=== PATIENT | female | born 1940 | race Caucasian/White ===

== ENCOUNTER → 2017-11-20 | Outpatient (CLI) | payer MEDICARE, OTHER ==
[~2017-11-20] MED LIST: AMOX500T2 PO; ASPI81TA82 PO; BENI40TA30 PO; BIOTCAP PO; CARV3.12 PO; CYAN1TAB22 PO; D200CAP PO; ECASA81 PO; FENO145T2 PO; FENO160T2 PO; KOMB5TAB2 PO; LEVO.125 PO; LIVA2TAB PO; LIVA4TAB PO; LORTA5 PO; LOSA25TA PO; OMEP20TA39 PO; OMEP40CA2 PO; PLAV75TA PO; SAXA1TBM PO; SYNT112T PO; SYNT125T PO; TIMO0.5S29 EACH EYE; TORS5TAB2 PO; TRAV0.00 EACH EYE; VITA200017 PO
[2017-11-20 11:22] LABS: CHOLESTEROL 168 MG/DL (120-200); TRIGLYCERIDES 236 MG/DL (42-150)
[2017-11-20 11:48] LABS: CHOLESTEROL/ HDL RATIO 7.81 RATIO; FREE T3 2.23 PG/ML (2.18-3.98); FREE T4 1.59 NG/DL (0.76-1.46); HDL CHOLESTEROL 21.5 MG/DL (40.0-60.0); LDL CHOLESTEROL 99 MG/DL (0-99)
[2017-11-20 16:28] LABS: HEMOGLOBIN A1C 6.1 % (4.3-6.0)
== END ==
LOC: CLAB 09:59
PROVIDERS: ATTEND Internal Medicine Endocrinology, Diabetes & Metabolism
DX: I10 Essential (primary) hypertension (principal); E11.65 Type 2 diabetes mellitus with hyperglycemia; E03.9 Hypothyroidism, unspecified; D53.1 Other megaloblastic anemias, not elsewhere classified; I25.10 Atherosclerotic heart disease of native coronary artery without angina pectoris; E78.4 Other hyperlipidemia
CPT/HCPCS: 80061; 82607; 83036; 84439; 84443; 84481

== ENCOUNTER → 2017-11-20 | Outpatient (CLI) | payer MEDICARE, OTHER ==
[2017-11-20 10:55] LABS: BASOPHIL # 0.2 TH/MM3 (0-0.2); BASOPHIL % 2.7 % (0.0-2.0); EOSINOPHIL # 0.6 TH/MM3 (0-0.4); EOSINOPHIL % 7.8 % (0.0-4.0); HEMATOCRIT 41.7 % (35.0-46.0); HEMOGLOBIN 13.8 GM/DL (11.6-15.3); LYMPH % 18.9 % (9.0-44.0); LYMPHOCYTE # 1.5 TH/MM3 (1.0-4.8); MEAN CELL VOLUME 90.2 FL (80.0-100.0); MEAN CORPUSCULAR HEMOGLOBIN 29.9 PG (27.0-34.0); MEAN CORPUSCULAR HGB CONC 33.2 % (32.0-36.0); MEAN PLATELET VOLUME 9.4 FL (7.0-11.0); MONO % 7.2 % (0.0-8.0); MONOCYTE # 0.6 TH/MM3 (0-0.9); NEUT % 63.4 % (16.0-70.0); PLATELET COUNT 405 TH/MM3 (150-450); RED BLOOD COUNT 4.63 MIL/MM3 (4.00-5.30); RED CELL DISTRIBUTION WIDTH 14.5 % (11.6-17.2); WHITE BLOOD COUNT 7.8 TH/MM3 (4.0-11.0)
[2017-11-20 11:02] LABS: INTERNATIONAL NORMALIZED RATIO 1.1 RATIO
[2017-11-20 11:20] LABS: ALBUMIN 4.5 GM/DL (3.4-5.0); AST (GOT) 21 U/L (15-37); BICARBONATE 27.2 MEQ/L (21.0-32.0); BLOOD UREA NITROGEN 23 MG/DL (7-18); CHLORIDE 100 MEQ/L (98-107); CREATININE 0.87 MG/DL (0.50-1.00); GLOMERULAR FILTRATION RATE 63 ML/MIN (>89); GLUCOSE,FASTING 116 MG/DL (74-99); SODIUM (NA) 137 MEQ/L (136-145)
[2017-11-20 11:23] LABS: BACTERIA, URINE OCC /hpf; BILIRUBIN, URINE NEG (NEG); BLOOD, URINE NEG (NEG); GLUCOSE,URINE NEG (NEG); HYALINE CAST, URINE 3 /lpf (RARE); KETONE, URINE NEG (NEG); MUCUS URINE FEW /lpf (OCC); NITRITE,URINE NEG (NEG); URINE COLOR YELLOW (YELLW/STRAW); URINE LEUKOCYTE ESTERASE LARGE (NEG); WHITE BLOOD CELL CLUMPS RARE
[2017-11-20 11:24] LABS: ALKALINE PHOSPHATASE 58 U/L (45-117); ALT (GPT) 21 U/L (10-53); TOTAL BILIRUBIN ADULT 0.3 MG/DL (0.2-1.0); TOTAL PROTEIN 8.6 GM/DL (6.4-8.2)
--- NOTE | 2017-11-20 11:26 | RADRPT ---
EXAM DATE/TIME: 11/20/2017 10:45 [place] COMPARISON: No previous studies available for comparison. INDICATIONS : Evalaute for pneumonia, pneumothorax, or communicable disease. Pre-op for sigmoid colectomy. MEDICAL HISTORY : Hypertension. Diabetes mellitus type II. SURGICAL HISTORY : Coronary artery stent. ENCOUNTER: Initial ACUITY: 1 day PAIN SCORE: 0/10 LOCATION: Bilateral chest FINDINGS: The lungs are clear without infiltrate, nodule, or mass. There is no appreciable pleural effusion fo r technique. Heart and mediastinum are unremarkable. CONCLUSION: No acute cardiopulmonary disease. Cruzito Jaime MD on November 20, 2017 at 11:23 Board Certified Radiologist. This report was verified electronically.
== END ==
LOC: CPRE 09:46
PROVIDERS: ATTEND Colon & Rectal Surgery
DX: Z01.812 Encounter for preprocedural laboratory examination (principal); Z01.811 Encounter for preprocedural respiratory examination; K57.32 Diverticulitis of large intestine without perforation or abscess without bleeding; N32.1 Vesicointestinal fistula; R82.99 Other abnormal findings in urine; Z79.01 Long term (current) use of anticoagulants; I10 Essential (primary) hypertension; E11.65 Type 2 diabetes mellitus with hyperglycemia; E03.9 Hypothyroidism, unspecified; D53.1 Other megaloblastic anemias, not elsewhere classified; I25.10 Atherosclerotic heart disease of native coronary artery without angina pectoris; E78.4 Other hyperlipidemia
CPT/HCPCS: 36415; 71046; 80053; 81001; 85025; 85610; 85730; 87086

== ENCOUNTER 2017-11-27 11:38 | Inpatient (IN) | payer MEDICARE, OTHER ==
[~2017-11-27] VITALS: Ht 161.3 cm; Wt 58.8 kg
[2017-11-27] VITALS (7 sets, daily range): BP systolic 121–148; BP diastolic 60–66; PULSE 81–88; RESP 16–18; TEMP 97.5–97.6; O2SAT 98–99
[~2017-11-27 11:38] MED LIST changes: -ASPI81TA82 PO; -BENI40TA30 PO; -FENO160T2 PO; -LIVA2TAB PO; -LORTA5 PO; -OMEP20TA39 PO; -PLAV75TA PO; -SAXA1TBM PO; -SYNT125T PO; -TIMO0.5S29 EACH EYE; -VITA200017 PO
[2017-11-27] MEDS ORDERED: DEXAMETHASONE SOD PHOS 4 MG/ML VIAL IV ONE (12:00)
[2017-11-27] MEDS ORDERED: PHENYLEPH/NS 1000 MCG/10 ML SYR IV ONE (12:00)
[2017-11-27] MEDS ORDERED: ONDANSETRON HCL 4 MG/2 ML VIAL IV ONE (12:00)
[2017-11-27] MEDS ORDERED: LIDOCAINE HCL 1% PF 5 ML SYRINGE OTHER ONE (12:00)
[2017-11-27] MEDS ORDERED: GLYCOPYRROLATE 1 MG/5 ML SYRINGE IV PUSH ONE (12:00)
[2017-11-27] MEDS ORDERED: ROCURONIUM INJ 50 MG/5 ML SYRINGE IV PUSH ONE (12:00)
[2017-11-27] MEDS ORDERED: ESMOLOL HCL 100 MG/10 ML VIAL IV ONE (12:00)
[2017-11-27] MEDS ORDERED: NEOSTIGMINE 5 MG/5 ML SYRINGE IV PUSH ONE (12:00)
[2017-11-27] MEDS ORDERED: LACTATED RINGER'S 1000 ML INJ 2,000 ML IV ONE (12:00)
[2017-11-27] MEDS ORDERED: PROPOFOL 200 MG/20 ML AMP IV ONE (12:00)
[2017-11-27] MEDS ORDERED: LEVO.125 PO (12:37)
[2017-11-27] MEDS ORDERED: BUPIVACAINE HCL PF 0.5% 30 ML VIAL ONE (12:44)
[2017-11-27] MEDS ORDERED: ceFAZolin INJ 1,000 MG VIAL ONE (13:07)
[2017-11-27] MEDS ORDERED: ALVIMOPAN 12 MG CAPSULE ONE (13:07)
[2017-11-27] MEDS ORDERED: LACTATED RINGER'S 1000 ML INJ 1,000 ML ONE (13:08)
[2017-11-27] MEDS ORDERED: metroNIDAZOLE 500 MG INJ 100 ML IV ONE (13:08)
[2017-11-27] MEDS ORDERED: SODIUM CHLORIDE 0.9% INJ 100 ML ONE (13:08)
[2017-11-27] MEDS ORDERED: LACTATED RINGER'S 1000 ML IV PRN (13:30)
[2017-11-27] MEDS ORDERED: SODIUM CHLORID 0.9% 500 ML IV PRN (13:30)
[2017-11-27] MEDS ORDERED: METOPROLOL TARTRATE 25 MG TAB PO PRN (13:30)
[2017-11-27] MEDS ORDERED: ALVIMOPAN 12 MG CAPSULE - On Call PO SCH (13:30)
[2017-11-27] MEDS ORDERED: POVIDONE IODINE 5% (ANTISEPSIS KIT) 4 APPLICATIONS EACH NARE PRN (13:30)
[2017-11-27] MEDS ORDERED: CHLORHEXIDINE GLUCONATE 2 % 1 PACK (2 CLOTHS) TOPICAL PRN (13:30)
[2017-11-27] MEDS ORDERED: APREPITANT 40 MG CAP ONE (13:42)
[2017-11-27] MEDS ORDERED: METRONIDAZOLE 500 MG/100 ML ISONTONIC SOLN IV SCH (13:45)
[2017-11-27] MEDS ORDERED: ceFAZolin 1,000 MG/NS 100 ML IV SCH ×2 (13:45)
[2017-11-27] MEDS ORDERED: ACETAMINOPHEN 1000 MG/100 ML 100 ML IV ONE (13:45)
[2017-11-27] MEDS ORDERED: DEXT 5%-NACL 0.9% 1000 ML INJ 1,000 ML IV SCH (14:00)
--- NOTE | 2017-11-27 14:29 | PD.OP ---
Operative Report Date of Surgery: Nov 27, 2017 Preoperative Diagnosis: Diverticulitis with colovesical fistula Postoperative Diagnosis: Same Procedure: Cystoscopy bilateral ureteral catheter placement Anesthesia: STELLAA Surgeon: Loco Matthews Footwear Sales Representative(s): None Resident Surgeon: None Operation and Findings: 69-year-old female with a history of diverticulitis and a colovesical fistula. Request for made for placement of bilateral ureteral catheters by Dr. Garcia. Risk and benefits were discussed preoperative and she is willing to proceed. Patient is brought to the operating room and identified by myself as Savita Granger. She is placed in dorsal lithotomy position, prepped and draped in usual sterile fashion, received preprocedure antibiotic to general endotracheal tube anesthesia was administered. 22 Macedonian cystoscope was inserted in the bladder donovan cystoscopy did not show any abnormalities. I did not visualize a colovesical fistula. The left ureteral orifice was identified and a 5 Macedonian opening catheter was inserted into the left ureteral orifice without difficulty. This was repeated on the right side without difficulty and then a 16 Macedonian Crespo catheter was inserted. The left catheter was tied to the Crespo catheter. She tolerated the procedure well. Loco Matthews DO Nov 27, 2017 14:29
[2017-11-27] MEDS ORDERED: DO NOT ADM ANY ANTICOAGULANT DRUGS PRN (16:28)
[2017-11-27] MEDS ORDERED: *morphine SULFATE 10 MG/ML PERIprocedure ONLY ONE (16:31)
[2017-11-27] MEDS ORDERED: ACETAMINOPHEN/HYDROcodone 325 MG/5 MG TAB PO PRN ×2 (17:00)
[2017-11-27] MEDS ORDERED: GLUCAGON 1 MG/ML VIAL OTHER PRN (17:00)
[2017-11-27] MEDS ORDERED: BENZOCAINE 6 MG/MENTHOL 10 MG LOZENGE BUCCAL PRN (17:00)
[2017-11-27] MEDS ORDERED: NALOXONE HCL 0.4 MG/ML AMP IV PUSH PRN (17:00)
[2017-11-27] MEDS: INSULIN NovoLIN REGULAR SUPPLEMENTAL SCALE SQ SCH ×2 (17:00→22:11)
[2017-11-27] MEDS ORDERED: DEXTROSE 50% IN WATER 50 ML VIAL(D50) IV PUSH PRN (17:00)
[2017-11-27 17:03] LABS: AUTOMATED NEUTROPHIL # 7.6 TH/MM3 (1.8-7.7); BASOPHIL # 0.1 TH/MM3 (0-0.2); BASOPHIL % 0.7 % (0.0-2.0); EOSINOPHIL # 0.1 TH/MM3 (0-0.4); EOSINOPHIL % 0.7 % (0.0-4.0); HEMATOCRIT 33.7 % (35.0-46.0); HEMOGLOBIN 11.2 GM/DL (11.6-15.3); LYMPH % 9.7 % (9.0-44.0); LYMPHOCYTE # 0.9 TH/MM3 (1.0-4.8); MEAN CELL VOLUME 90.1 FL (80.0-100.0); MEAN CORPUSCULAR HGB CONC 33.3 % (32.0-36.0); MEAN PLATELET VOLUME 9.4 FL (7.0-11.0); MONO % 4.5 % (0.0-8.0); MONOCYTE # 0.4 TH/MM3 (0-0.9); NEUT % 84.4 % (16.0-70.0); PLATELET COUNT 325 TH/MM3 (150-450); RED BLOOD COUNT 3.74 MIL/MM3 (4.00-5.30); RED CELL DISTRIBUTION WIDTH 14.6 % (11.6-17.2)
[2017-11-27] MEDS ORDERED: POTASSIUM CHLOR 20 MEQ PREMIX 100 ML IV PRN (17:15)
[2017-11-27] MEDS ORDERED: POTASSIUM CHLOR 40 MEQ PREMIX 100 ML IV PRN (17:15)
[2017-11-27] MEDS ORDERED: SODIUM CHLORIDE 0.9% FLUSH 10 ML FLUSH IV FLUSH PRN (17:15)
[2017-11-27 17:16] LABS: BICARBONATE 20.6 MEQ/L (21.0-32.0); CALCIUM 7.5 MG/DL (8.5-10.1); CREATININE 0.8 MG/DL (0.50-1.00)
[2017-11-27] MEDS: D5-LR + KCL 20 MEQ INJ 1,000 ML IV SCH ×2 (17:25→22:12)
[2017-11-27] MEDS ORDERED: ENALAPRILAT 1.25 MG/ML VIAL IV PUSH PRN (17:30)
[2017-11-27] MEDS ORDERED: *HYDROmorphone PF 1 MG VIAL PERIprocedural Use ONLY ONE (17:48)
[2017-11-27] MEDS ORDERED: Post-op Orders (for Pharmacy) XX ONE (18:00)
[2017-11-27] MEDS: FUROSEMIDE 20 MG/2 ML VIAL IV PUSH SCH (18:00)
[2017-11-27] MEDS: METOCLOPRAMIDE HCL 10 MG/2 ML VIAL IVS SCH ×2 (18:00→23:22)
[2017-11-27] MEDS: MORPHINE SULFATE 30 MG/30 ML PCA IV SCH (18:00)
--- NOTE | 2017-11-27 18:29 | MH ---
cc: Gwyn HUNT DATE OF ADMISSION 11/27/2017 CHIEF COMPLAINT Colovesical fistula. HISTORY OF PRESENT ILLNESS This patient developed what seemed to be a colovesical fistula with air in the bladder seen on CT scan prior to any instrumentation. She underwent cystoscopy a couple of times by Dr. Wolf Varner and there was air seen in the bladder and debris in the bladder but no actual fistula site was seen. The patient has had a bout of diverticulitis in the past, but this time she did not have any symptoms of diverticulitis that she recognized. She ended up in the hospital at [facility] and became septic with pyelonephritis and ended up intubated and had to be resuscitated back in May or June of last year. Since that time, she was evaluated by Dr. Rani Chacko, the sales store checker, to rule out any heart disease and underwent echocardiogram and her heart seemed very stable and she was cleared for surgery. She says that she did pass some air and some debris in the past. The history is also complicated by the fact that she has had at least two to three different mesh placements for urinary stress incontinence, first done by Dr. Ray Teague some years ago and then by Dr. Cynthia Huston and then by Dr. Nora Marquez. Nevertheless, she has never had any erosion of the mesh, but on exam in the office mesh could be palpated in the rectum through the rectal wall but not eroding and also anterior in the vagina but not eroding into the vagina either. She had no fecal drainage from the vagina. There is no evidence of any urethral fistula and the only plausible cause was a colovesical fistula from diverticular disease. PAST MEDICAL HISTORY, SOCIAL HISTORY AND FAMILY HISTORY, REVIEW OF SYSTEMS As above. PHYSICAL EXAMINATION GENERAL: Well-developed, well-nourished female in no acute distress. SKIN: Warm and dry. HEENT: Extraocular muscles intact. NECK: Supple. CHEST: Clear. S1-S2 is heard. ABDOMEN: Soft, nontender. No masses. RECTAL: Exam previously done reveals the mesh palpable in the rectum and through the rectal wall and in the anterior vagina. EXTREMITIES: Range of motion within normal limits. NEUROLOGIC: Grossly normal. IMPRESSION Probable colovesical fistula from diverticular disease. PLAN Recommend sigmoid colectomy low anterior resection. We will have bilateral ureteral catheters placed at the time of surgery. I have gone over all the risks, benefits and alternatives with her and her family extensively several times including the fact that the mesh may be eroded. It may cause us further problems and she may require stoma, although I felt that the odds of that were pretty small. We will also plan on doing intraoperative colonoscopy because she has not had a colonoscopy for five years time. MD JOSELIN Moctezuma/ /5:43 PM /6:01 PM
[2017-11-27] MEDS: LATANOPROST 0.005% OPHT SOLN 2.5 ML BTL EACH EYE SCH (21:00)
[2017-11-27] MEDS ORDERED: ZOLPIDEM TARTRATE 5 MG TAB PO PRN (21:00)
[2017-11-27] MEDS: KETOROLAC TROMETHAMINE 30 MG/ML (IVP) VIAL IVP PRN (21:00)
[2017-11-27] MEDS: CARVEDILOL 3.125 MG TAB PO SCH (21:00)
[2017-11-27] MEDS: SODIUM CHLORIDE 0.9% FLUSH 10 ML FLUSH IV FLUSH SCH (21:00)
[2017-11-27] MEDS: metroNIDAZOLE 500 MG INJ 100 ML IV SCH (21:01)
[2017-11-27] MEDS: ceFAZolin 2 GM PREMIX 50 ML IV SCH (21:01)
[2017-11-27] MEDS: PCA - TOTAL MG MORPHINE DELIVERED PER SHIFT SCH (22:00)
[2017-11-28] VITALS (19 sets, daily range): BP systolic 103–136; BP diastolic 50–56; PULSE 69–97; RESP 14–16; TEMP 97.6–98.7; O2SAT 93–98
[2017-11-28] MEDS: D5-LR + KCL 20 MEQ INJ 1,000 ML IV SCH (03:00)
[2017-11-28] MEDS: PCA - TOTAL MG MORPHINE DELIVERED PER SHIFT SCH ×3 (05:10→21:00)
[2017-11-28] MEDS: ceFAZolin 2 GM PREMIX 50 ML IV SCH ×2 (05:11→14:12)
[2017-11-28] MEDS: metroNIDAZOLE 500 MG INJ 100 ML IV SCH ×2 (05:11→14:12)
[2017-11-28] MEDS: LEVOTHYROXINE SODIUM 125 MCG TAB PO SCH (05:11)
[2017-11-28] MEDS: METOCLOPRAMIDE HCL 10 MG/2 ML VIAL IVS SCH ×4 (05:11→23:12)
[2017-11-28 05:52] LABS: AUTOMATED NEUTROPHIL # 11.1 TH/MM3 (1.8-7.7); BASOPHIL % 0.2 % (0.0-2.0); EOSINOPHIL % 0.1 % (0.0-4.0); HEMATOCRIT 33.6 % (35.0-46.0); HEMOGLOBIN 10.8 GM/DL (11.6-15.3); LYMPH % 3.5 % (9.0-44.0); LYMPHOCYTE # 0.4 TH/MM3 (1.0-4.8); MEAN CELL VOLUME 89.9 FL (80.0-100.0); MEAN CORPUSCULAR HGB CONC 32.2 % (32.0-36.0); MEAN PLATELET VOLUME 9.6 FL (7.0-11.0); MONO % 6.4 % (0.0-8.0); MONOCYTE # 0.8 TH/MM3 (0-0.9); NEUT % 89.8 % (16.0-70.0); PLATELET COUNT 296 TH/MM3 (150-450); RED BLOOD COUNT 3.74 MIL/MM3 (4.00-5.30); RED CELL DISTRIBUTION WIDTH 14.7 % (11.6-17.2); WHITE BLOOD COUNT 12.3 TH/MM3 (4.0-11.0)
[2017-11-28 06:13] LABS: BICARBONATE 27.5 MEQ/L (21.0-32.0); CALCIUM 7.8 MG/DL (8.5-10.1); CREATININE 1.02 MG/DL (0.50-1.00)
[2017-11-28] MEDS: INSULIN NovoLIN REGULAR SUPPLEMENTAL SCALE SQ SCH ×4 (08:00→20:56)
[2017-11-28] MEDS ORDERED: ALVIMOPAN 12 MG CAPSULE - Post-op dosing PO SCH (09:00)
[2017-11-28] MEDS: SODIUM CHLORIDE 0.9% FLUSH 10 ML FLUSH IV FLUSH SCH ×2 (09:00→20:56)
[2017-11-28] MEDS: CARVEDILOL 3.125 MG TAB PO SCH ×2 (10:06→20:56)
[2017-11-28] MEDS: PRAVASTATIN SOD 80 MG TAB PO SCH (10:06)
[2017-11-28] MEDS: PANTOPRAZOLE SODIUM 40 MG VIAL IVP SCH (10:07)
[2017-11-28] MEDS: FENOFIBRATE 145 MG TAB PO SCH (10:07)
[2017-11-28] MEDS: LOSARTAN 25 MG TAB PO SCH (10:07)
[2017-11-28] MEDS: FUROSEMIDE 20 MG/2 ML VIAL IV PUSH SCH ×2 (10:17→18:16)
--- NOTE | 2017-11-28 16:01 | HHI.PR ---
Subjective Remarks No N or V. No BMs. Not much pain. Ambulated in [place] Objective Vital Signs Date Time Temp Pulse Resp B/P (MAP) Pulse Ox O2 Delivery O2 Flow Rate FiO2 11/28/17 14:00 16 11/28/17 13:00 80 11/28/17 12:00 82 11/28/17 11:00 94 11/28/17 11:00 83 14 103/50 (67) 94 11/28/17 10:00 74 11/28/17 09:00 86 11/28/17 08:58 98 21 11/28/17 08:00 98.3 86 16 111/53 (72) 96 11/28/17 08:00 93 11/28/17 07:00 94 11/28/17 06:00 82 11/28/17 05:10 16 11/28/17 05:00 76 11/28/17 04:00 84 11/28/17 03:00 98.0 91 16 105/51 (69) 95 11/28/17 03:00 97 11/28/17 03:00 95 Room Air 11/28/17 02:00 88 11/28/17 01:00 89 11/28/17 00:00 90 11/27/17 23:05 96 Room Air 11/27/17 23:00 98 Nasal Cannula 2.00 11/27/17 23:00 97.5 88 16 121/60 (80) 98 11/27/17 23:00 88 11/27/17 22:00 88 11/27/17 22:00 16 11/27/17 21:20 98 Nasal Cannula 2.00 11/27/17 21:00 86 11/27/17 20:35 Nasal Cannula 2.00 11/27/17 20:30 97.6 81 18 148/66 (93) 99 11/27/17 20:30 99 Nasal Cannula 3.00 11/27/17 20:00 86 11/27/17 19:00 81 11/27/17 18:07 78 16 150/65 (93) 99 Nasal Cannula 2 11/27/17 18:00 16 11/27/17 16:29 98.2 81 16 155/65 (95) 99 Nasal Cannula 2 I/O 11/27/17 11/27/17 11/27/17 11/28/17 11/28/17 11/28/17 07:00 15:00 23:00 07:00 15:00 23:00 Intake Total 2750 ml 2512 ml Output Total 1140 ml 1085 ml Balance 1610 ml 1427 ml Intake Oral 0 ml 50 ml IV Total 2350 ml 2462 ml Other 400 ml Output Urine Total 750 ml 1025 ml Drainage Total 190 ml 60 ml Estimated Blood Loss 200 ml # Voids 1 # Bowel Movements 0 Result Diagram: 11/28/179 11/28/17408 Objective Remarks VS-S Abd: soft,not distended I&Os-OK Labs-OK Assessment and Plan Assessment and Plan POD#1-Stable Plan- D/C alatorre and WIRE THREADER in AM Decrease IVs, Advance to FLD in AM. Abd binder. D/C tele. SQ Heparin. Transfer to floor. Ray Ferguson MD Nov 28, 2017 16:01
--- NOTE | 2017-11-28 17:11 | MP ---
cc: MICHELLE ANYLOR MD, JOHN T. M.D. LOPEZ, MARIA I. M.D. DATE OF SURGERY: 11/28/2017. PREOPERATIVE DIAGNOSIS: Diverticulitis with colovesical fistula. POSTOPERATIVE DIAGNOSIS: Diverticulitis with colovesical fistula. OPERATIVE PROCEDURE PERFORMED: 1. Lysis of adhesions. 2. Sigmoid colectomy with low anterior resection. 3. Mobilization of splenic flexure. 4. Omental flap. 5. Intraoperative colonoscopy. SURGEON: Ray Ferguson M.D. THERMODYNAMICS TEACHER: Amadou Quigley MD. Ban Schuler MS-3. ANESTHESIA: General endotracheal anesthesia. OPERATING TIME: One hour and fifty minutes. ESTIMATED BLOOD LOSS: 100 mL OPERATIVE FINDINGS: This patient was found to have air in the bladder and had urinary sepsis in the hospital and he became septic and needed to be intubated about six months ago. She recovered from that and it was felt that she probably had a colovesical fistula due to diverticular disease, although she has had multiple urethral mesh procedures for stress incontinence. She has also had a previous cholecystectomy, hysterectomy, bilateral salpingo-oophorectomy, and appendectomy. Because of the debris in the bladder and because of the air in the bladder, it was felt that she had a colovesical fistula, although no definite fistula could be seen on cystoscopy by Dr. Wolf Naylor. At surgery, she was found to have extensive omental adhesion along her whole right side of her abdomen precluding palpation of the right lobe of the liver and the gallbladder bed. The omental adhesion was mobilized, especially in the lower abdomen out of the pelvis where it was stuck down through her cul-de-sac region and the sigmoid colon was looped in the pelvis and stuck against the posterior dome of the bladder and there was a piece of what appeared to be [place] mesh curled up and stuck on the outside wall of the sigmoid colon where it was stuck to the bladder. Presumably, this is where the fistula was, although it was not clearly seen either on the bladder or on the opened sigmoid specimen at the end of the case. Nevertheless, because of this kink in the sigmoid colon and the symptoms the patient had and the mesh that was present there, a sigmoid colectomy was done with a colorectal anastomosis. She had a fairly low cul-de-sac so the anastomosis was above the cul-de-sac but probably at about the mid rectum at about 9 cm to 10 cm. A #29 EEA stapling instrument was used for the anastomosis. The left ureter and right ureter were identified and protected at all times with ureteral catheters placed by Dr. Loco Matthews, and the full splenic flexure was mobilized and an omental flap was mobilized at the end of the case and placed down the left colic gutter between the anastomosis and the posterior bladder. DESCRIPTION OF THE PROCEDURE IN DETAIL / OPERATIVE TECHNIQUE: The patient was placed on the table in the supine position. After adequate general endotracheal anesthesia, the legs were placed in the perineolithotomy position and the abdomen and perineum were prepped and draped in the usual manner. A transverse infraumbilical skin incision was made and carried down through subcutaneous tissue and rectus muscles and the peritoneal cavity was entered with the above-mentioned findings. Our attention was turned to the omental adhesions, and they were all taken down with electrocautery from the abdominal wall and the pelvis and the right upper quadrant. Next, once the omentum was lifted up out of the abdominal cavity, our attention was turned to the cecum and terminal ileum and it was mobilized out of the right lower quadrant allowing us to retract the bowel up and out of the abdominal cavity including the small bowel. Our attention was then turned to the sigmoid and descending colon which was mobilized along its peritoneal reflection and the left ureter was identified and protected at all times. The dissection was taken up to the splenic flexure and including the splenic flexure; however, the remainder of the left colic vessels were not ligated. Once this was done, the inferior mesenteric artery was doubly clamped, cut and doubly ligated with 0 Vicryl ligature at its origin and the inferior mesenteric vein was clamped, cut and ligated as well. The lateral pelvic peritoneum was incised bilaterally and the retrorectal space was entered and dissection was taken down to the pelvic floor posteriorly. Laterally, the dissection was taken down to the cul-de-sac but not including the cul-de-sac and the caliber of the rectum changed dramatically in the first 4 cm to 5 cm just below the sigmoid and this area was cleared of its of mesorectum clamping and cutting and ligating the mesorectum and then dividing the rectum after placing a pursestring stapling device. The rectum was of large size but it was quite thin and it was able to accept any size EEA instrument needed. Next our attention was turned to the sigmoid colon and the area that was previously dissected off the posterior part of the bladder included a piece of what appeared to be [place] mesh and a suture that went through the posterior wall of the bladder or vagina and this was removed as well simply by pulling on it and it appeared to be a Prolene suture. Next, this mobilized sigmoid was measured for length. It should be noted that the sigmoid was not firmly indurated or inflamed and did not contain any apparent fistula, although the area where the [place] was stuck was densely stuck to the back wall of the bladder. We assumed that the fistula was small in size and was present there on the back wall of the bladder and at that point in the sigmoid where this [place] was located. The upper point of resection was chosen and the pursestring stapling device was used on the upper bowel and the bowel was divided. The caliber of that bowel was simply not large enough to accept a 33 EEA and a 29 anvil was placed in that bowel. The pursestring was tied and then the EEA instrument was placed transanally by Dr. Quigley and the distal pursestring was tied. Upon doing this anteriorly, it appeared as if a portion of the pursestring tore out of the anterior wall of the rectum and there was a small 0.5-cm defect present. A Vicryl suture was used to pull that in with another pursestring to ensure that the rectum was intact around the stem of the EEA. Once this was done, the EEA instrument was connected, closed and fired creating the circular anastomosis. There was no tension on the anastomosis and the blood supply was excellent. The bowel was pink. Next, Dr. Quigley did intraoperative colonoscopy to the cecum and a small 5 mm polyp was seen in the transverse colon and left alone. Dr. Quigley then did proctosigmoidoscopy examination insufflating air into the rectum with saline solution in the pelvis and no air leaks were identified on distension of the bowel. Again the bowel was under no tension and the blood supply appeared excellent. For this reason, no diverting ileostomy was done as the anastomosis was above the cul-de-sac and in a fairly safe area of the rectum. Next the omentum was mobilized from the left portion of the transverse colon entering the lesser sac and the omentum that was mobilized was brought down the left colic gutter and placed over the rectosigmoid anastomosis and between the back wall of the vagina and bladder as well as the anastomosis. Next the abdominal cavity was irrigated thoroughly with saline solution, aspirated dry, and a flat Fernando drain was placed in the retrorectal space and brought out through a separate stab wound in the right lower quadrant and then the abdominal contents were replaced in the abdominal cavity in an maintenance man manner and the abdominal cavity was closed in layers using double-stranded #1 PDS for the posterior rectus sheath. Irrigation was done in the muscle layer and then the anterior rectus sheath was closed with double-stranded #1 PDS as well. Subcutaneous tissue was irrigated thoroughly with saline solution, aspirated dry and the skin was closed with running 3-0 Vicryl subcuticular suture and a dressing was applied. Sponge, needle and instrument counts were reported as correct. The estimated blood loss was 100 cc. The patient tolerated the procedure well and left the operating room in good condition. MD JOSELIN Moctezuma/ISMAEL /5:47 PM /4:49 PM
[2017-11-28] MEDS: POTASSIUM CHLORIDE INJ 20 MEQ in LACTATED RINGER'S 1000 ML INJ 1,000 ML IV SCH (18:17)
[2017-11-28] MEDS: LATANOPROST 0.005% OPHT SOLN 2.5 ML BTL EACH EYE SCH (20:36)
[2017-11-28] MEDS: ALVIMOPAN 12 MG CAPSULE PO SCH (20:56)
[2017-11-28] MEDS: HEPARIN SODIUM - SQ 10,000 UNITS/ML VIAL SQ SCH (20:56)
[2017-11-29] MEDS: MORPHINE SULFATE 30 MG/30 ML PCA IV SCH (00:12)
[2017-11-29 03:10] VITALS: BP 119/56; PULSE 91; RESP 16; TEMP 98.5; O2SAT 96
[2017-11-29] MEDS: POTASSIUM CHLORIDE INJ 20 MEQ in LACTATED RINGER'S 1000 ML INJ 1,000 ML IV SCH ×2 (03:21→16:04)
[2017-11-29 04:42] LABS: AUTOMATED NEUTROPHIL # 8.4 TH/MM3 (1.8-7.7); BASOPHIL # 0.1 TH/MM3 (0-0.2); BASOPHIL % 0.5 % (0.0-2.0); EOSINOPHIL # 0.6 TH/MM3 (0-0.4); EOSINOPHIL % 5.4 % (0.0-4.0); HEMATOCRIT 29.1 % (35.0-46.0); HEMOGLOBIN 9.3 GM/DL (11.6-15.3); LYMPHOCYTE # 1.3 TH/MM3 (1.0-4.8); MEAN CELL VOLUME 89.7 FL (80.0-100.0); MEAN CORPUSCULAR HEMOGLOBIN 28.8 PG (27.0-34.0); MEAN CORPUSCULAR HGB CONC 32.1 % (32.0-36.0); MEAN PLATELET VOLUME 8.4 FL (7.0-11.0); MONOCYTE # 0.7 TH/MM3 (0-0.9); NEUT % 76.1 % (16.0-70.0); PLATELET COUNT 261 TH/MM3 (150-450); RED BLOOD COUNT 3.24 MIL/MM3 (4.00-5.30); RED CELL DISTRIBUTION WIDTH 15.1 % (11.6-17.2)
[2017-11-29] MEDS: KETOROLAC TROMETHAMINE 30 MG/ML (IVP) VIAL IVP PRN ×2 (04:53→22:01)
[2017-11-29] MEDS: LEVOTHYROXINE SODIUM 125 MCG TAB PO SCH (05:04)
[2017-11-29] MEDS: PCA - TOTAL MG MORPHINE DELIVERED PER SHIFT SCH ×2 (05:04→14:00)
[2017-11-29] MEDS: METOCLOPRAMIDE HCL 10 MG/2 ML VIAL IVS SCH ×3 (05:04→18:47)
[2017-11-29 05:19] LABS: BICARBONATE 27.2 MEQ/L (21.0-32.0); CREATININE 0.84 MG/DL (0.50-1.00)
[2017-11-29 08:00] VITALS: BP 125/60; PULSE 87; RESP 16; TEMP 98.2; O2SAT 94
[2017-11-29] MEDS: INSULIN NovoLIN REGULAR SUPPLEMENTAL SCALE SQ SCH ×4 (08:00→21:00)
[2017-11-29] MEDS: FUROSEMIDE 20 MG/2 ML VIAL IV PUSH SCH ×2 (09:00→18:47)
--- NOTE | 2017-11-29 09:04 | HHI.PR ---
Subjective Remarks C/R Surg POD #1 afebrile, VSS UO good - bloody CIARA little Objective - Vital Signs Date Time Temp Pulse Resp B/P (MAP) Pulse Ox O2 Delivery O2 Flow Rate FiO2 11/29/17 05:04 16 11/29/17 03:10 98.5 91 119/56 (77) 96 11/28/17 08:58 21 11/28/17 03:00 Room Air 11/27/17 23:00 2.00 Result Diagram: 11/29/17 0435 11/29/17 0425 Other Results PE alert Abd - full, +tympany, wound dry liq stool A/P Assessment and Plan Imp: adv diet slowly leave landry [place] prn Rachid Chen MD Nov 29, 2017 09:04
[2017-11-29] MEDS: CARVEDILOL 3.125 MG TAB PO SCH ×2 (10:33→22:00)
[2017-11-29] MEDS: PANTOPRAZOLE SODIUM 40 MG VIAL IVP SCH (10:33)
[2017-11-29] MEDS: ALVIMOPAN 12 MG CAPSULE PO SCH ×2 (10:33→21:59)
[2017-11-29] MEDS: HEPARIN SODIUM - SQ 10,000 UNITS/ML VIAL SQ SCH ×2 (10:33→22:00)
[2017-11-29] MEDS: PRAVASTATIN SOD 80 MG TAB PO SCH (10:33)
[2017-11-29] MEDS: ASPIRIN EC 81 MG TABEC PO SCH (10:34)
[2017-11-29] MEDS: FENOFIBRATE 145 MG TAB PO SCH (10:34)
[2017-11-29] MEDS: LOSARTAN 25 MG TAB PO SCH (10:34)
[2017-11-29] MEDS: SODIUM CHLORIDE 0.9% FLUSH 10 ML FLUSH IV FLUSH SCH ×2 (10:35→22:00)
[2017-11-29 11:00] VITALS: BP 123/58; PULSE 79; RESP 14; O2SAT 94
[2017-11-29 15:00] VITALS: BP 158/67; PULSE 71; RESP 20; TEMP 98.6; O2SAT 97
[2017-11-29 20:00] VITALS: BP 126/60; PULSE 84; RESP 18; TEMP 98.1; O2SAT 98
[2017-11-29] MEDS: LATANOPROST 0.005% OPHT SOLN 2.5 ML BTL EACH EYE SCH (21:00)
[2017-11-30] VITALS: BP 116/56; PULSE 88; RESP 18; TEMP 98.1; O2SAT 93
[2017-11-30] MEDS: METOCLOPRAMIDE HCL 10 MG/2 ML VIAL IVS SCH ×4 (00:51→17:01)
[2017-11-30] MEDS: POTASSIUM CHLORIDE INJ 20 MEQ in LACTATED RINGER'S 1000 ML INJ 1,000 ML IV SCH ×2 (00:52→11:25)
[2017-11-30 06:30] VITALS: BP 150/67; PULSE 77; RESP 16; TEMP 98.3; O2SAT 96
[2017-11-30] MEDS: LEVOTHYROXINE SODIUM 125 MCG TAB PO SCH (06:48)
[2017-11-30] MEDS: KETOROLAC TROMETHAMINE 30 MG/ML (IVP) VIAL IVP PRN (06:48)
[2017-11-30 06:58] VITALS: BP 128/80
[2017-11-30 08:00] VITALS: BP 165/69; PULSE 80; RESP 14; TEMP 98.3; O2SAT 95
[2017-11-30] MEDS: INSULIN NovoLIN REGULAR SUPPLEMENTAL SCALE SQ SCH ×3 (08:00→17:00)
[2017-11-30] MEDS: SODIUM CHLORIDE 0.9% FLUSH 10 ML FLUSH IV FLUSH SCH (09:00)
--- NOTE | 2017-11-30 09:08 | HHI.PR ---
Subjective Remarks C/R Surg POD #3 afebrile, VSS UO good - clearer CIARA little Objective - Vital Signs Date Time Temp Pulse Resp B/P (MAP) Pulse Ox O2 Delivery O2 Flow Rate FiO2 11/30/17 08:00 16 11/30/17 06:58 128/80 (96) 11/30/17 06:30 98.3 77 96 11/28/17 08:58 21 11/28/17 03:00 Room Air 11/27/17 23:00 2.00 Result Diagram: 11/29/17 0435 11/29/17 0425 Objective Remarks PE alert Abd - softer, wound dry A/P Assessment and Plan Imp: adv diet slowly leave Rachid Gallegos DC, MD Nov 30, 2017 09:08
[2017-11-30] MEDS: PANTOPRAZOLE SODIUM 40 MG VIAL IVP SCH (09:21)
[2017-11-30] MEDS: HEPARIN SODIUM - SQ 10,000 UNITS/ML VIAL SQ SCH (09:21)
[2017-11-30] MEDS: ALVIMOPAN 12 MG CAPSULE PO SCH (09:21)
[2017-11-30] MEDS: PRAVASTATIN SOD 80 MG TAB PO SCH (09:21)
[2017-11-30] MEDS: FENOFIBRATE 145 MG TAB PO SCH (09:21)
[2017-11-30] MEDS: LOSARTAN 25 MG TAB PO SCH (09:22)
[2017-11-30] MEDS: ASPIRIN EC 81 MG TABEC PO SCH (09:22)
[2017-11-30] MEDS: CARVEDILOL 3.125 MG TAB PO SCH (09:22)
[2017-11-30] MEDS: FUROSEMIDE 20 MG/2 ML VIAL IV PUSH SCH (09:31)
[2017-11-30 11:00] VITALS: BP 132/63; PULSE 80; RESP 16; O2SAT 98
[2017-11-30 15:00] VITALS: BP 167/72; PULSE 78; RESP 14; TEMP 98.6; O2SAT 98
--- NOTE | 2017-11-30 16:04 | HHI.FF ---
Face to Face Verification Diagnosis: (1) [place]-vesical fistula Physical Therapy Order: Evaluate and Treat, Improve ambulation, Strength and gait training Home Health Nursing Order: Signs/symptoms of disease process Wound care and dressing changes Instructions: drain I have seen patient Savita Granger on 11/30/17. My clinical findings support the need for the requested home health care services because: Ltd mobility - disease progression Deconditioned w/ increased weakness Limited ability to care for self Infection w/ risk of complications I certify that my clinical findings support that this patient is homebound because: Post-op weakness Unsteady gait/balance Unable to use public transportation Rachid Chen MD Nov 30, 2017 16:04
== END 2017-11-30 18:24 | disposition home or self-care (01) | DRG 330 ==
LOC: HSDI 11:38 → HCPC 18:43
PROVIDERS: ADMIT Colon & Rectal Surgery; ATTEND Colon & Rectal Surgery
PROC: 0DPD0JZ Removal of Synthetic Substitute from Lower Intestinal Tract, Open Approach (ICD-10-PCS; 2017-11-27)
PROC: 0DJD8ZZ Inspection of Lower Intestinal Tract, Via Natural or Artificial Opening Endoscopic (ICD-10-PCS; 2017-11-27)
PROC: 0TJB8ZZ Inspection of Bladder, Via Natural or Artificial Opening Endoscopic (ICD-10-PCS; 2017-11-27)
PROC: 0T9870Z Drainage of Bilateral Ureters with Drainage Device, Via Natural or Artificial Opening (ICD-10-PCS; 2017-11-27)
PROC: 0DTN0ZZ Resection of Sigmoid Colon, Open Approach (ICD-10-PCS; principal; 2017-11-27 13:48)
PROC: 0TP Urinary System, Removal (ICD-10-PCS; 2017-11-27 13:48)
DX: K57.32 Diverticulitis of large intestine without perforation or abscess without bleeding (principal); N32.1 Vesicointestinal fistula; I11.0 Hypertensive heart disease with heart failure; I50.9 Heart failure, unspecified; E11.40 Type 2 diabetes mellitus with diabetic neuropathy, unspecified; I48.91 Unspecified atrial fibrillation; N39.3 Stress incontinence (female) (male); K66.0 Peritoneal adhesions (postprocedural) (postinfection); K63.5 Polyp of colon; E78.5 Hyperlipidemia, unspecified; I25.10 Atherosclerotic heart disease of native coronary artery without angina pectoris; I25.2 Old myocardial infarction; D64.9 Anemia, unspecified; K21.9 Gastro-esophageal reflux disease without esophagitis; H40.9 Unspecified glaucoma; Z79.84 Long term (current) use of oral hypoglycemic drugs; Z86.73 Personal history of transient ischemic attack (TIA), and cerebral infarction without residual deficits; Z95.5 Presence of coronary angioplasty implant and graft
CPT/HCPCS: 80048; 82948; 85025; 86850; 86900; 86901; 88307; 94150; C9113; J0131; J0690; J1100; J1170; J1644; J1885; J1940; J2270; J2370; J2405; J2710; J2765; J3010; J3480; J7120; J8501